=== PATIENT | male | born 1965 | race Caucasian/White ===

== ENCOUNTER 2020-09-07 13:35 | Emergency (ER) | payer MEDICAID ==
--- NOTE | 2020-09-07 14:07 | EDM.PDOC ---
ED HPI GENERAL MEDICAL PROBLEM - General Chief Complaint: ENT Problem Stated Complaint: BLOODY NOSE Time Seen by Provider: 09/07/20 13:50 Source of Information: Reports: Patient History Limitations: Reports: No Limitations - History of Present Illness INITIAL COMMENTS - FREE TEXT/NARRATIVE: nasal bleed left side for 3 days on/off. last bleeding an hour ago - and haven't stopped with pressure. not on blood thinners but he recall it might have started after picking his nose. He also ran out of his BP meds 6 days ago, and just started back 3 days ago. BP today 149/90. no SOB. Other Treatments [employer]: Ice to nose bridge - Related Data Allergies Allergy/AdvReac Type Severity Reaction Status Date / Time amoxicillin Allergy Intermediate Hives Verified 09/07/20 13:46 Home Meds: Home Meds Losartan [Cozaar] 25 mg PO DAILY 09/07/20 [History] atorvaSTATin [Lipitor] 20 mg 09/07/20 [History] ED ROS ENT - Review of Systems Review Of Systems: See Below Constitutional: Reports: No Symptoms HEENT: Reports: Nosebleed Respiratory: Reports: No Symptoms Cardiovascular: Reports: No Symptoms GI/Abdominal: Reports: No Symptoms : Reports: No Symptoms Musculoskeletal: Reports: No Symptoms Skin: Reports: No Symptoms Neurological: Reports: No Symptoms ED EXAM, ENT - Physical Exam Exam: See Below Exam Limited By: No Limitations General Appearance: Alert, WD/WN, No Apparent Distress Eye Exam: Bilateral Eye: EOMI Nose: Dried Blood, Other (small active bleeding lower nasal septum ) Respiratory/Chest: No Respiratory Distress Cardiovascular: Normal Peripheral Pulses, Regular Rate, Rhythm Neurological: Alert, Oriented, No Motor/Sensory Deficits Course - Re-Assessments/Exams Free Text/Narrative Re-Assessment/Exam: 09/07/20 14:04 rhino rockets was applied in the left nasal side tolerated well - no complication bleeding was controlled Departure - Departure Time of Disposition: 14:05 Disposition: Home, Self-Care 01 Condition: Good Clinical Impression: Epistaxis - Discharge Information *PRESCRIPTION DRUG MONITORING PROGRAM REVIEWED*: Not Applicable *COPY OF PRESCRIPTION DRUG MONITORING REPORT IN PATIENT BJ: Not Applicable Referrals: PCP,None [Primary Care Provider] - - Problem List & Annotations (1) Epistaxis SNOMED Code(s): 654887925 Code(s): R04.0 - EPISTAXIS Status: Acute Priority: Low Current Visit: Yes - Problem List Review Problem List Initiated/Reviewed/Updated: Yes - Assessment/Plan Plan: - leave nasal packing in for at least 6 hours - apply nasal clamp if any bleeding noticed - return to the ER if any concerns - avoid dry weather and make sure to take your blood pressure meds to prevent further bleeding
== END 2020-09-07 14:05 | disposition home or self-care (01) ==
LOC: LB.ED 13:35
DX: R04.0 Epistaxis (principal); Z88.0 Allergy status to penicillin; Z79.899 Other long term (current) drug therapy
CPT/HCPCS: 30903; 99283-25